=== PATIENT | female | born 1995 | race Caucasian/White ===

== ENCOUNTER 2017-12-19 18:43 | Emergency (ER) | payer OTHER ==
[2017-12-19 18:54] VITALS: BP 149/71
--- NOTE | 2017-12-19 19:06 | EDPHY ---
General Time Seen by Provider: 12/19/17 19:01 Narrative: CHIEF COMPLAINT: Piece of metal in my leg HISTORY OF PRESENT ILLNESS: Patient presents with complaints of foreign body metal in her right leg. She was using a weed eater earlier today when a piece of metal was thrown into her right leg. This is over the right lateral ankle. Minimal bleeding. Minimally painful. She says that she was hesitant to pull it out because she was instructed deep was. She was wearing sandals when this happened. She has no injury elsewhere. No numbness, tingling or weakness. No other associated complaints or modifying factors. She is uncertain when her last tetanus was TIME OF INJURY: Less than 2 hr prior to arrival TETANUS STATUS: 2013 MEDICAL/SURGICAL/SOCIAL HISTORY: Uncomplicated medical history. [employer] student. Originally from [place] REVIEW OF SYSTEMS: Ten systems reviewed and are negative unless otherwise noted in the HPI EXAMINATION General Appearance: Alert, no distress Head: normocephalic, atraumatic Cardiovascular: Symmetric DP and PT pulses. Brisk cap refill in the right foot. Neurological: A&O, sensory symmetric, strength symmetric Skin: Warm and dry, no rash. Superficial abrasions to the dorsum of the left foot. No pulsatile bleeding. There is a foreign body on the right lateral ankle consistent with copper wiring. No bleeding. No hematoma. Extremities: Minimal tenderness of the area of foreign body. Range of motion of the extremities intact symmetrically DIFFERENTIAL DIAGNOSES: Including but not limited to foreign body, venous injury, arterial injury, hematoma MDM: 7:05 p.m. Foreign body to the right leg while using a weed eater just prior to arrival. She is neuro intact distally. There is no hematoma or expanding hematoma. I have ordered x-ray to determine the depth of the body. 7:30 p.m. I have reviewed the x-ray and the foreign body is minimally intrusive. Less than half a cm. I have removed the foreign body out difficulty. We will clean the area, dressed the area. She will be discharged home with daily wound care instructions. ED precautions for signs of infection. Discharged stable condition. SUPERVISION: This patient was independently evaluated without direct involvement of or examination by the attending physician. ED Precautions: Worsening pain. Erythema, edema, cyanosis, pallor, paresthesia or anesthesia. - Diagnostics Imaging Results: Imaging Impressions Ankle X-Ray 12/19/17 19:06 Impression: Thin, linear radiopaque density along the posterolateral ankle may represent the foreign body referred to in the provided history, the most of it does appear external to the patient. No acute osseous normality. - History Smoking Status: Never smoked - Objective Vital Signs: Initial Vital Signs Temperature (C) 98.4 F 12/19/17 18:51 Heart Rate 86 12/19/17 18:51 Respiratory Rate 16 12/19/17 18:51 Blood Pressure 149/71 H 12/19/17 18:51 O2 Sat (%) 96 12/19/17 18:51 O2 Delivery Mode Room Air Allergies/Adverse Reactions: No Known Allergies Allergy (Unverified 11/16/14 02:12) Home Medications: Medication Instructions Recorded Bcp 11/16/14 Departure - Departure Disposition: Home, Routine, Self-Care Clinical Impression: Foreign body of ankle, right, superficial Qualifiers: Encounter type: initial encounter Qualified Code(s): S90.551A - Superficial foreign body, right ankle, initial encounter Condition: Good Instructions: Soft Tissue Foreign Body (ED) Additional Instructions: 1. Daily wound care with bacitracin or Neosporin 2. Follow up with primary care physician 3. ED precautions discussed Referrals: Rhianna Hadley MD [Medical Doctor] - As per Instructions
== END 2017-12-19 19:49 | disposition home or self-care (01) ==
DX: S90.551A Superficial foreign body, right ankle, initial encounter (principal); W20.8XXA Other cause of strike by thrown, projected or falling object, initial encounter; Y99.8 Other external cause status; Y93.89 Activity, other specified